=== PATIENT | male | born 1980 | race American Indian/Alaskan Native ===

== ENCOUNTER 2017-02-19 18:46 | Emergency (ER) | payer OTHER ==
[2017-02-19 20:02] VITALS: BP 150/106
[2017-02-19] MEDS ORDERED: MORPHINE IM ONE (20:14)
[2017-02-19] MEDS ORDERED: ZOFRAN IM ONE (20:14)
[2017-02-19] MEDS ORDERED: TORADOL IM ONE (20:15)
--- NOTE | 2017-02-19 20:22 | Emergency Department Report ---
HPI - General Chief Complaint: Fall Time Seen by Provider: 02/19/17 19:31 - HPI HPI: Room 7 The patient is a 36-year-old male presenting with a chief complaint of back and right knee pain. The patient states he was playing softball and while running for a ball began to feel spasms in his back which cause him to fall landing on his right knee. Denies loss of consciousness. Patient gives his back pain a score of 10/10 in his right knee a score of 7/10. The patient states he has had this back pain in the past and has been attributed to muscle spasms Location: Back, right knee Duration: Constant times hours Quality: Pain Severity: 7-10/10 Modifying factors: Movement increases pain Context: [see above] Mode of transportation: [not driving] ED Past Medical Hx - Past Medical History Previous Medical History?: Yes Hx Hypertension: Yes Hx Diabetes: Yes (pre) Additional medical history: Scoliosis. MORBID OBESITY. SLEEP APNEA - Surgical History Past Surgical History?: Yes Additional Surgical History: LEFT HIP. BACK SURGERY-ULLOA RODS FOR SCOLIOSIS - Family History Family history: no significant - Social History Smoking Status: Never Smoker Substance Use Type: Alcohol - Medications Home Medications: Home Medications Medication Instructions Recorded Confirmed Last Taken Type Acetaminophen/Codeine [Tylenol #3] 1 tab PO Q6H PRN #15 tab 06/26/15 Unknown Rx Cephalexin [Keflex] 500 mg PO Q12HR #20 cap 06/26/15 Unknown Rx Sulfamethoxazole/Trimethoprim 1 each PO BID #20 tablet 06/26/15 Unknown Rx [Bactrim DS TAB] Cyclobenzaprine [Flexeril] 10 mg PO TID PRN #14 tablet 02/19/17 Unknown Rx HYDROcodone/APAP 5-325 [[place] 1 - 2 each PO Q6HR PRN #14 tablet 02/19/17 Unknown Rx 5/325] Ibuprofen [Motrin 800 MG tab] 800 mg PO Q8HR PRN #20 tablet 02/19/17 Unknown Rx ED Review of Systems ROS: Stated complaint: BACK SPASMS/KNEE PAIN Other details as noted in HPI Comment: All other systems reviewed and negative Constitutional: denies: chills, fever Eyes: denies: eye pain, eye discharge, vision change ENT: denies: ear pain, throat pain Respiratory: denies: cough, shortness of breath, wheezing Cardiovascular: denies: chest pain, palpitations Endocrine: no symptoms reported Gastrointestinal: denies: abdominal pain, nausea, diarrhea Genitourinary: denies: urgency, dysuria Musculoskeletal: back pain, arthralgia, myalgia Skin: denies: rash, lesions Neurological: denies: headache, weakness, paresthesias Psychiatric: denies: anxiety, depression Hematological/Lymphatic: denies: easy bleeding, easy bruising Physical Exam - Physical Exam Vital Signs: Vital Signs 02/19/17 02/19/17 19:00 20:01 Temperature 98 F 98 F Pulse Rate 100 H 98 H Respiratory 22 18 Rate Blood Pressure 194/134 Blood Pressure 150/106 [Left] O2 Sat by Pulse 94 95 Oximetry Physical Exam: GENERAL: The patient is well-developed well-nourished male lying on stretcher appearing to be in mild discomfort. [] HEENT: Normocephalic. Atraumatic. Extraocular motions are intact. Patient has moist mucous membranes. NECK: Supple. Trachea midline CHEST/LUNGS: Clear to auscultation. There is no respiratory distress noted. HEART/CARDIOVASCULAR: Regular. There is no tachycardia. ABDOMEN: Abdomen is soft, nontender. Patient has normal bowel sounds. There is no abdominal distention. SKIN: There is dirt to the right knee but no active abrasion or laceration seen NEURO: The patient is awake, alert, and oriented. The patient is cooperative. The patient has no focal neurologic deficits. The patient has normal speech MUSCULOSKELETAL: There is tenderness to palpation of the right knee. There is pain with valgus stress of the right lower extremity. There is lumbar tenderness to palpation as well as left paraspinous tenderness to palpation. ED Course Vital Signs 02/19/17 02/19/17 19:00 20:01 Temperature 98 F 98 F Pulse Rate 100 H 98 H Respiratory 22 18 Rate Blood Pressure 194/134 Blood Pressure 150/106 [Left] O2 Sat by Pulse 94 95 Oximetry ED Medical Decision Making - Lab Data Result diagrams: 02/19/17 20:05 02/19/17 20:05 Laboratory Tests 02/19/17 02/19/17 02/19/17 20:05 20:05 20:24 WBC 5.4 RBC 5.05 H Hgb 14.9 Hct 46.6 H MCV 92 MCH 29 MCHC 32 RDW 16.5 H Plt Count 214 Lymph % (Auto) 35.3 H [place] % (Auto) 10.8 H Eos % (Auto) 4.7 H Baso % (Auto) 1.2 Lymph # 1.9 [place] # 0.6 Eos # 0.3 Baso # 0.1 Seg Neutrophils % 48.0 Seg Neutrophils # 2.6 Sodium 143 Potassium 4.0 Chloride 99.0 Carbon Dioxide 34 H Anion Gap 14 BUN 10 Creatinine 1.1 Estimated GFR > 60 BUN/Creatinine Ratio 9.09 Glucose 86 Calcium 9.0 Total Bilirubin 1.60 H AST 26 ALT 21 Alkaline Phosphatase 90 Total Protein 7.3 Albumin 3.5 L Albumin/Globulin Ratio 0.9 Urine Color Yellow Urine Turbidity Clear Urine pH 6.0 Ur Specific [place] 1.020 Urine Protein 100 mg/dl Urine Glucose (UA) Neg Urine Ketones Neg Urine Blood Neg Urine Nitrite Neg Urine Bilirubin Neg Urine Urobilinogen 4.0 Ur Leukocyte Esterase Neg Urine WBC (Auto) 1.0 Urine RBC (Auto) 1.0 U Epithel Cells (Auto) 1.0 Urine Mucus Few - Radiology Data Radiology results: image reviewed (right knee x-ray, lumbar spine x-ray) interpreted by me: Right knee x-ray-no acute fractures Lumbar spine x-ray-no acute fractures - Differential Diagnosis patella fracture, tibial plateau fracture, muscle spasm Critical care attestation.: If time is entered above; I have spent that time in minutes in the direct care of this critically ill patient, excluding procedure time. ED Disposition Clinical Impression: Lumbar strain, Right knee injury, Total bilirubin, elevated Disposition: DC-01 TO HOME OR SELFCARE Is pt being admited?: No Does the pt Need Aspirin: No Condition: Stable Instructions: Muscle Strain (ED), Knee Pain (ED), Arthralgia (ED) Additional Instructions: Return to the emergency department immediately should you develop worsening symptoms, fever, inability to tolerate food or liquid or any other concerns. Prescriptions: Cyclobenzaprine [Flexeril] 10 mg PO TID PRN #14 tablet PRN Reason: Muscle Spasm HYDROcodone/APAP 5-325 [[place] 5/325] 1 - 2 each PO Q6HR PRN #14 tablet PRN Reason: Pain Ibuprofen [Motrin 800 MG tab] 800 mg PO Q8HR PRN #20 tablet PRN Reason: Pain Referrals: PRIMARY CARE, [Primary Care Provider] - 3-5 Days RAJESH BENNETT MD [Staff Physician] - 3-5 Days (Dr. Bennett is an orthopedic surgeon. Please follow up with him for further evaluation) ANUPAM WILKES MD [Staff Physician] - 3-5 Days (Dr. Wilkes is a table attendant. Please follow with him for further evaluation of your elevated total bilirubin (1.6 mg/dL)) Time of Disposition: 22:03
[2017-02-19 20:27] LABS: Basophils % (Auto) 1.2 % (0.0-1.8); Eosinophils % (Auto) 4.7 % (0.0-4.3); Hematocrit 46.6 % (35.5-45.6); Hemoglobin 14.9 gm/dl (11.8-15.2); Mean Corpuscular HGB Conc 32 % (32-34); Mean Corpuscular Hemoglobin 29 pg (28-32); Mean Corpuscular Volume 92 fl (84-94); Platelet Count 214 K/mm3 (140-440); Red Blood Count 5.05 M/mm3 (3.65-5.03); Red Cell Distribution Width 16.5 % (13.2-15.2); White Blood Count 5.4 K/mm3 (4.5-11.0)
[2017-02-19 20:36] LABS: Alanine Aminotransferase 21 units/L (7-56); Albumin 3.5 g/dL (3.9-5); Albumin/Globulin Ratio 0.9 %; Alkaline Phosphatase 90 units/L (35-129); Anion Gap 14 mmol/L; BUN/Creatinine Ratio 9.09; Blood Urea Nitrogen 10 mg/dL (9-20); Carbon Dioxide 34 mmol/L (22-30); Glucose 86 mg/dL (75-100); Sodium 143 mmol/L (137-145); Total Protein 7.3 g/dL (6.3-8.2)
--- NOTE | 2017-02-19 20:37 | XRay Report ---
FINAL REPORT EXAM: XR KNEE 3V RT HISTORY: RT KNEE INJURY COMPARISON: None available. FINDINGS: Three views of right knee obtained. Mild narrowing hypertrophic spurring of the medial joint space compartment. No acute fracture dislocation. No suprapatellar effusion. IMPRESSION: Mild degenerative changes. No acute fracture.
[2017-02-19 20:43] LABS: Bilirubin,Urine NEG (Negative); Blood,Urine NEG (Negative); Ketones,Urine NEG (Negative); Leukocyte Esterase,Urine NEG (Negative); Mucus,Urine FEW /HPF; Nitrite,Urine NEG (Negative)
--- NOTE | 2017-02-19 21:52 | XRay Report ---
FINAL REPORT EXAM: XR SPINE LUMBOSACRAL 2-3V HISTORY: LOWER BACK PAIN AFTER FALL COMPARISON: None available. FINDINGS: Three views of the lumbar spine obtained. Lumbar vertebral body heights and disc heights are preserved. Partial visualization of Erwin rods within the lower thoracic spine and plate screw fixation of the left pelvic ring. Dorsal angulation of the coccyx which may be developmental or may relate to prior trauma. IMPRESSION: Lumbar vertebral body heights and disc heights are preserved. Mild dorsal angulation of the coccyx which may be developmental or could relate to prior trauma.
== END 2017-02-19 23:19 | disposition home or self-care (01) ==
LOC: ED 18:46
DX: S39.012A Strain of muscle, fascia and tendon of lower back, initial encounter (principal); S89.91XA Unspecified injury of right lower leg, initial encounter; R74.8 Abnormal levels of other serum enzymes; W18.30XA Fall on same level, unspecified, initial encounter; Y93.9 Activity, unspecified; Y92.9 Unspecified place or not applicable; Y99.9 Unspecified external cause status
CPT/HCPCS: 29505; 36415; 72100; 73562; 80053; 81001; 85025; 96372; 99284; J1885; J2270; J2405

== ENCOUNTER 2017-08-21 14:25 | Emergency (ER) | payer OTHER ==
[2017-08-21] MEDS ORDERED: MOTRIN PO ONE (15:04)
--- NOTE | 2017-08-21 20:24 | XRay Report ---
FINAL REPORT EXAM: XR ANKLE 3+V LT HISTORY: injury TECHNIQUE: Three views left ankle PRIORS: None. FINDINGS: No fracture is identified. No dislocation seen. Ankle mortise is intact no evidence of joint space widening. No erosive or degenerative changes are identified. No evidence of joint effusion. There is diffuse soft tissue swelling IMPRESSION: Soft tissue swelling Otherwise no acute abnormality
[2017-08-21 21:01] VITALS: BP 155/97
--- NOTE | 2017-08-21 21:04 | Emergency Department Report ---
ED Lower Extremity HPI - General Chief Complaint: Extremity Injury, Lower Stated Complaint: LEFT FOOT PAIN Time Seen by Provider: 08/21/17 20:09 Source: patient Mode of arrival: Ambulatory Limitations: Physical Limitation - History of Present Illness Initial Comments: This is a 37-year-old male nontoxic, well nourished in appearance, no acute signs of distress presents to the ED with c/o of left ankle pain and swelling x1 day. Patient stated he was walking and twisted his ankle and developed pain and swelling. Patient denies any trauma to the region. Denies any numbness, tingling, fever, chills, nausea, vomiting, chest pain or shortness of breath. Denies any other trauma. Patient denies any allergies. Past medical history includes diabetes and hypertension. MD Complaint: ankle injury -: days(s) (1) Injury: Ankle: Left Type of Injury: inversion Place: street/outdoors Severity: mild Severity scale (0 -10): 8 Improves With: nothing Worsens With: nothing Context: other (twist) Associated Symptoms: swelling, able to partially bear weight, ambulatory. denies: snap/pop sensation, numbness, tingling, unable to bear weight - Related Data Previous Rx's Medication Instructions Recorded Last Taken Type Acetaminophen/Codeine [Tylenol #3] 1 tab PO Q6H PRN #15 tab 06/26/15 Unknown Rx Cephalexin [Keflex] 500 mg PO Q12HR #20 cap 06/26/15 Unknown Rx Sulfamethoxazole/Trimethoprim 1 each PO BID #20 tablet 06/26/15 Unknown Rx [Bactrim DS TAB] Cyclobenzaprine [Flexeril] 10 mg PO TID PRN #14 tablet 02/19/17 Unknown Rx HYDROcodone/APAP 5-325 [[place] 1 - 2 each PO Q6HR PRN #14 tablet 02/19/17 Unknown Rx 5/325] Ibuprofen [Motrin 800 MG tab] 800 mg PO Q8HR PRN #20 tablet 02/19/17 Unknown Rx Ibuprofen [Motrin] 600 mg PO Q8H PRN #30 tablet 08/21/17 Unknown Rx Allergies Allergy/AdvReac Type Severity Reaction Status Date / Time No Known Allergies Allergy Verified 06/26/15 21:48 ED Review of Systems ROS: Stated complaint: LEFT FOOT PAIN Other details as noted in HPI Constitutional: denies: chills, fever Eyes: denies: eye pain, eye discharge, vision change ENT: denies: ear pain, throat pain Respiratory: denies: cough, shortness of breath, wheezing Cardiovascular: denies: chest pain, palpitations Endocrine: no symptoms reported Gastrointestinal: denies: abdominal pain, nausea, diarrhea Genitourinary: denies: urgency, dysuria Musculoskeletal: denies: back pain, joint swelling, arthralgia Skin: denies: rash, lesions Neurological: denies: headache, weakness, paresthesias Psychiatric: denies: anxiety, depression Hematological/Lymphatic: denies: easy bleeding, easy bruising ED Past Medical Hx - Past Medical History Hx Hypertension: Yes Hx Diabetes: Yes (pre) Additional medical history: Scoliosis. MORBID OBESITY. SLEEP APNEA - Surgical History Additional Surgical History: LEFT HIP. BACK SURGERY-ULLOA RODS FOR SCOLIOSIS - Social History Smoking Status: Never Smoker Substance Use Type: Alcohol - Medications Home Medications: Home Medications Medication Instructions Recorded Confirmed Last Taken Type Acetaminophen/Codeine [Tylenol #3] 1 tab PO Q6H PRN #15 tab 06/26/15 Unknown Rx Cephalexin [Keflex] 500 mg PO Q12HR #20 cap 06/26/15 Unknown Rx Sulfamethoxazole/Trimethoprim 1 each PO BID #20 tablet 06/26/15 Unknown Rx [Bactrim DS TAB] Cyclobenzaprine [Flexeril] 10 mg PO TID PRN #14 tablet 02/19/17 Unknown Rx HYDROcodone/APAP 5-325 [[place] 1 - 2 each PO Q6HR PRN #14 tablet 02/19/17 Unknown Rx 5/325] Ibuprofen [Motrin 800 MG tab] 800 mg PO Q8HR PRN #20 tablet 02/19/17 Unknown Rx Ibuprofen [Motrin] 600 mg PO Q8H PRN #30 tablet 08/21/17 Unknown Rx ED Physical Exam - General Limitations: Physical Limitation General appearance: alert, in no apparent distress - Head Head exam: Present: atraumatic, normocephalic - Eye Eye exam: Present: normal appearance Pupils: Present: normal accommodation - ENT ENT exam: Present: mucous membranes moist - Neck Neck exam: Present: normal inspection - Respiratory Respiratory exam: Present: normal lung sounds bilaterally. Absent: respiratory distress - Cardiovascular Cardiovascular Exam: Present: regular rate, normal rhythm. Absent: systolic murmur, diastolic murmur, rubs, gallop - GI/Abdominal GI/Abdominal exam: Present: soft, normal bowel sounds - Rectal Rectal exam: Present: deferred - Extremities Exam Extremities exam: Present: normal inspection, full ROM, tenderness, normal capillary refill. Absent: pedal edema, joint swelling, calf tenderness - Expanded Lower Extremity Exam Left Hip exam: Present: normal inspection, full ROM Upper Leg exam: Present: normal inspection, full ROM Knee exam: Present: normal inspection, full ROM Lower Leg exam: Present: normal inspection, full ROM Ankle exam: Present: normal inspection, full ROM, tenderness, swelling. Absent : abrasion, laceration, ecchymosis, deformity, crepidus, dislocation, erythema, anterior draw sign Foot/Toe exam: Present: normal inspection, full ROM Neuro vascular tendon exam: Present: no vascular compromise. Absent: pulse deficit, abnormal cap refill, motor deficit, sensory deficit, tendon deficit, extremity cold to touch, pallor, abnormal 2-point discrimination, decreased fine /light touch, foot drop, peroneal nerve deficit, significant pain with passive ROM of distal joint Gait: Positive: observed and limited by pain 1 - pain - Back Exam Back exam: Present: normal inspection - Neurological Exam Neurological exam: Present: alert, oriented X3 - Psychiatric Psychiatric exam: Present: normal affect, normal mood - Skin Skin exam: Present: warm, dry, intact, normal color. Absent: rash ED Course Vital Signs 08/21/17 14:57 Temperature 98.5 F Pulse Rate 101 H Blood Pressure 157/107 O2 Sat by Pulse 96 Oximetry - Reevaluation(s) Reevaluation #1: 08/21/17 21:05 Patient is speaking in full sentences with no signs of distress noted. ED Lower Extremity MDM - Medical Decision Making This is a 37-year-old male that presents with left ankle sprain. Patient is stable and was examined by me. Xray has been obtained and dictated by radiologist with normal exam and no fractures or dislocation. Patient is notified of xray results with no questions noted. Patient received left ankle stirrup in the Ed and crutches. Crutches was educated by RN. Patient was instructed to RICE therapy. Patient was instructed to Follow-up with a orthopedic doctor in 3-5 days or if symptoms worsen and continue return to emergency room as soon as possible. At time time of discharge, the patient does not seem toxic or ill in appearance. No acute signs of distress noted. Patient agrees to discharge treatment plan of care. No further questions noted by the patient. Critical care attestation.: If time is entered above; I have spent that time in minutes in the direct care of this critically ill patient, excluding procedure time. ED Disposition Clinical Impression: Left ankle sprain Qualifiers: Encounter type: initial encounter Involved ligament of ankle: unspecified ligament Qualified Code(s): S93.402A - Sprain of unspecified ligament of left ankle, initial encounter Disposition: TO HOME OR SELFCARE Is pt being admited?: No Does the pt Need Aspirin: No Condition: Stable Instructions: Ankle Sprain (ED), Ankle Stirrup Splint (ED), Crutch Instructions (ED), RICE Therapy (ED), Ibuprofen (By mouth) Additional Instructions: Follow-up with a orthopedic doctor in 3-5 days or if symptoms worsen and continue return to emergency room as soon as possible. Rest, elevate, and ice extremity Prescriptions: Ibuprofen [Motrin] 600 mg PO Q8H PRN #30 tablet PRN Reason: Pain Referrals: JACKIE CLARK MD [Primary Care Provider] - 3-5 Days LANA ALEJANDRO MD [Staff Physician] - 3-5 Days [facility] [Outside] - 3-5 Days [facility] [Outside] - 3-5 Days Forms: Work/School Release Form(ED)
== END 2017-08-21 21:30 | disposition home or self-care (01) ==
LOC: ED 14:25
DX: S93.402A Sprain of unspecified ligament of left ankle, initial encounter (principal); I10 Essential (primary) hypertension; X50.9XXA Other and unspecified overexertion or strenuous movements or postures, initial encounter; Y93.89 Activity, other specified; Y99.8 Other external cause status; Y92.410 Unspecified street and highway as the place of occurrence of the external cause

== ENCOUNTER 2018-05-08 14:24 | Emergency (ER) | payer OTHER ==
[2018-05-08] MEDS ORDERED: NORCO 10/325 ONE (17:22)
[2018-05-08] MEDS ORDERED: NORCO 10/325 PO ONE (17:32)
--- NOTE | 2018-05-08 19:18 | XRay Report ---
FINAL REPORT PROCEDURE: XR HIP 2-3V LT TECHNIQUE: LEFT hip radiographs, 2 views each, including AP view of the pelvis. HISTORY: Pain and decreased range of motion after fall. COMPARISON: No prior studies are available for comparison. FINDINGS: Fracture (s) and/or Dislocation(s): Complex left acetabular reconstruction. Subtle lucency about left femoral head/neck Joint space(s): Moderate hypertrophic change and well corticated densities about the left hip joint. Findings to a lesser degree about the right hip joint. Increase sclerosis seen in both femoral heads. Soft tissues: Normal. Bone mineralization: Normal. Foreign bodies: None. IMPRESSION: Extensive postsurgical changes about the left hip with degenerative changes of the bilateral hips, and possible superimposed process such as AVN or infectious/inflammatory change. Findings more involve the left hip, well corticated densities likely chronic/degenerative. However, there is subtle lucency about left femoral head/neck, cannot exclude minimally displaced fracture. Consider CT scan for further characterization if there is continued clinical concern.
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
[2018-05-08] MEDS ORDERED: MORPHINE IM ONE (22:16)
--- NOTE | 2018-05-08 22:39 | Cat Scan Report ---
FINAL REPORT PROCEDURE: CT PELVIS WO CON TECHNIQUE: Computerized axial tomography of the pelvis was performed without contrast material. HISTORY: left hip pain, history of fracture and repair COMPARISON: No prior studies are available for comparison. TECHNICAL QUALITY: Satisfactory. FINDINGS: Hardware traverses the left acetabulum. The left hip joint is intact. There is dystrophic calcification about the left hip joint. Osteoarthritic changes are also present, with joint space narrowing, osteophyte formation, and subarticular cyst formation in the acetabulum and femoral head. No acute fracture of the left femur is seen. No acute fracture of the bony pelvis is seen. Sacroiliac joints are intact. IMPRESSION: Chronic changes as above. No acute fracture is seen
[2018-05-09 00:54] VITALS: BP 138/76
== END 2018-05-09 00:41 | disposition home or self-care (01) ==
LOC: ED 14:24
DX: M25.552 Pain in left hip (principal); I10 Essential (primary) hypertension; E11.9 Type 2 diabetes mellitus without complications; G47.30 Sleep apnea, unspecified
CPT/HCPCS: 72192; 73502; 96372; 99284; J2270

== ENCOUNTER 2018-12-18 16:11 | Emergency (ER) | payer OTHER ==
[2018-12-18 16:21] VITALS: BP 141/74
[2018-12-18 18:28] LABS: Hematocrit 43.6 % (35.5-45.6); Hemoglobin 14.7 gm/dl (11.8-15.2); Mean Corpuscular HGB Conc 34 % (32-34); Mean Corpuscular Volume 89 fl (84-94); Platelet Count 271 K/mm3 (140-440); Red Blood Count 4.91 M/mm3 (3.65-5.03)
[2018-12-18 18:42] LABS: Alanine Aminotransferase 15 units/L (7-56); Albumin 4.1 g/dL (3.9-5); BUN/Creatinine Ratio 14; Blood Urea Nitrogen 10 mg/dL (9-20); Calcium 9.3 mg/dL (8.4-10.2); Hemolysis Index 11
[2018-12-18] MEDS ORDERED: ZOFRAN IV ONE (20:43)
[2018-12-18] MEDS ORDERED: TORADOL IV ONE (20:43)
[2018-12-18] MEDS ORDERED: D50W (25GM) Syringe IV ONE (20:43)
[2018-12-18] MEDS ORDERED: NACL 0.9% 1000 ML 1,000 ML IV ONE (20:43)
--- NOTE | 2018-12-18 20:50 | Emergency Department Report ---
ED Abdominal Pain HPI - General Chief Complaint: Abdominal Pain Stated Complaint: FALL/STOMACH PAIN Time Seen by Provider: 12/18/18 20:41 Source: patient Mode of arrival: Wheelchair Limitations: No Limitations - History of Present Illness Initial Comments: Patient is a 38-year-old -[place] male with a history of diabetes 2, Hypertension, morbid obesity, and GERD, who presents with abdominal pain nausea vomiting pain is right upper quadrant radiating to right lower quadrant pain is exacerbated by movement and by mouth intake last po intake yesterday as well as nausea vomiting last episode this afternoon last Accu-Chek was 91mg/dl this af ternoon patient denies history of gallstones or renal stones however does have GERD with frequent exacerbation. MD Complaint: abdominal pain Onset/Timin -: days(s) Location: diffuse Radiation: RUQ Migration to: RUQ, RLQ Severity: moderate Severity scale (0 -10): 10 Quality: aching, sharp Consistency: constant Improves With: nothing Worsens With: eating Associated Symptoms: nausea, vomiting - Related Data Previous Rx's Medication Instructions Recorded Last Taken Type Acetaminophen/Codeine [Tylenol #3] 1 tab PO Q6H PRN #15 tab 06/26/15 Unknown Rx Sulfamethoxazole/Trimethoprim 1 each PO BID #20 tablet 06/26/15 Unknown Rx [Bactrim DS TAB] cephALEXin [Keflex] 500 mg PO Q12HR #20 cap 06/26/15 Unknown Rx Cyclobenzaprine [Flexeril] 10 mg PO TID PRN #14 tablet 02/19/17 Unknown Rx Ibuprofen [Motrin 800 MG tab] 800 mg PO Q8HR PRN #20 tablet 02/19/17 Unknown Rx Ibuprofen [Motrin] 600 mg PO Q8H PRN #30 tablet 08/21/17 Unknown Rx HYDROcodone/APAP 5-325 [[place] 1 each PO Q6HR PRN #12 tablet 05/08/18 Unknown Rx 5-325 mg TAB] Omeprazole 40 mg PO DAILY #30 capsule. 12/18/18 Unknown Rx traMADol [Ultram 50 MG tab] 50 mg PO Q6HR PRN #12 tablet 12/18/18 Unknown Rx Allergies Allergy/AdvReac Type Severity Reaction Status Date / Time No Known Allergies Allergy Verified 05/08/18 14:51 ED Review of Systems ROS: Stated complaint: FALL/STOMACH PAIN Other details as noted in HPI Constitutional: denies: chills, fever Eyes: denies: eye pain, eye discharge, vision change ENT: denies: ear pain, throat pain Respiratory: denies: cough, shortness of breath, wheezing Cardiovascular: denies: chest pain, palpitations Endocrine: no symptoms reported Gastrointestinal: abdominal pain, nausea, vomiting Genitourinary: denies: urgency, dysuria, frequency, hematuria Musculoskeletal: denies: back pain, joint swelling, arthralgia Skin: denies: rash, lesions Neurological: denies: headache, weakness, paresthesias Psychiatric: denies: anxiety, depression Hematological/Lymphatic: denies: easy bleeding, easy bruising ED Past Medical Hx - Past Medical History Previous Medical History?: Yes Hx Hypertension: Yes Hx Diabetes: Yes (pre) Additional medical history: Scoliosis. MORBID OBESITY. SLEEP APNEA - Surgical History Past Surgical History?: Yes Additional Surgical History: LEFT HIP. BACK SURGERY-ULLOA RODS FOR SCOLIOSIS - Social History Smoking Status: Never Smoker Substance Use Type: Alcohol - Medications Home Medications: Home Medications Medication Instructions Recorded Confirmed Last Taken Type Acetaminophen/Codeine [Tylenol #3] 1 tab PO Q6H PRN #15 tab 06/26/15 Unknown Rx Sulfamethoxazole/Trimethoprim 1 each PO BID #20 tablet 06/26/15 Unknown Rx [Bactrim DS TAB] cephALEXin [Keflex] 500 mg PO Q12HR #20 cap 06/26/15 Unknown Rx Cyclobenzaprine [Flexeril] 10 mg PO TID PRN #14 tablet 02/19/17 Unknown Rx Ibuprofen [Motrin 800 MG tab] 800 mg PO Q8HR PRN #20 tablet 02/19/17 Unknown Rx Ibuprofen [Motrin] 600 mg PO Q8H PRN #30 tablet 08/21/17 Unknown Rx HYDROcodone/APAP 5-325 [[place] 1 each PO Q6HR PRN #12 tablet 05/08/18 Unknown Rx 5-325 mg TAB] Omeprazole 40 mg PO DAILY #30 capsule. 12/18/18 Unknown Rx traMADol [Ultram 50 MG tab] 50 mg PO Q6HR PRN #12 tablet 12/18/18 Unknown Rx ED Physical Exam - General Limitations: No Limitations General appearance: alert, in no apparent distress - Head Head exam: Present: atraumatic, normocephalic - Eye Eye exam: Present: normal appearance - ENT ENT exam: Present: mucous membranes moist - Neck Neck exam: Present: normal inspection, full ROM. Absent: lymphadenopathy, thyromegaly - Respiratory Respiratory exam: Present: normal lung sounds bilaterally. Absent: respiratory distress, wheezes, stridor, chest wall tenderness - Cardiovascular Cardiovascular Exam: Present: regular rate, normal rhythm, normal heart sounds. Absent: systolic murmur, diastolic murmur, rubs, gallop - GI/Abdominal GI/Abdominal exam: Present: tenderness (RUQ RLQ LLQ ), normal bowel sounds, other (obese ). Absent: guarding, rebound, rigid, bruit, hernia - Rectal Rectal exam: Present: deferred - Extremities Exam Extremities exam: Present: normal inspection, full ROM, normal capillary refill. Absent: tenderness, pedal edema, joint swelling, calf tenderness - Back Exam Back exam: Present: normal inspection, full ROM. Absent: tenderness, CVA tenderness (R), CVA tenderness (L), muscle spasm, rash noted - Neurological Exam Neurological exam: Present: alert, oriented X3, CN II-XII intact, normal gait - Psychiatric Psychiatric exam: Present: normal affect, normal mood - Skin Skin exam: Present: warm, dry, intact, normal color. Absent: rash ED Course Vital Signs 12/18/18 16:19 Temperature 97.9 F Pulse Rate 84 Respiratory 20 Rate Blood Pressure 141/74 O2 Sat by Pulse 96 Oximetry ED Medical Decision Making - Lab Data Result diagrams: 12/18/18 17:44 12/18/18 17:44 Labs 12/18/18 12/18/18 12/18/18 17:44 17:44 21:16 WBC 9.2 RBC 4.91 Hgb 14.7 Hct 43.6 MCV 89 MCH 30 MCHC 34 RDW 14.0 Plt Count 271 Sodium 141 Potassium 4.2 Chloride 98.7 Carbon Dioxide 32 H Anion Gap 15 BUN 10 Creatinine 0.7 L Estimated GFR > 60 BUN/Creatinine Ratio 14 Glucose 54 L Calcium 9.3 Total Bilirubin 0.70 AST 19 ALT 15 Alkaline Phosphatase 64 Total Protein 7.9 Albumin 4.1 Albumin/Globulin Ratio 1.1 Lipase 28 Urine Color Yellow Urine Turbidity Clear Urine pH 6.0 Ur Specific [place] 1.023 Urine Protein <15 mg/dl Urine Glucose (UA) Neg Urine Ketones Neg Urine Blood Neg Urine Nitrite Neg Urine Bilirubin Neg Urine Urobilinogen 4.0 Ur Leukocyte Esterase Neg Urine WBC (Auto) < 1.0 Urine RBC (Auto) 1.0 U Epithel Cells (Auto) < 1.0 Hyaline Casts 1 Urine Mucus Few - Radiology Data Radiology results: report reviewed, image reviewed Referring Physician: FLOR JASON Patient Name: SAJI CANNON Date of : 1980 Sex: Male Report Date: 2018-12-18 Report Status: Finalized Findings [facility] [address] [id number] Cat Scan Report Signed Patient: SAJI CANNON MR#: [id number] : 1980 Acct:[id number] Age/Sex: 38 / M ADM Date: 12/18/18 Loc: ED Attending Dr: Ordering Physician: FLOR JASON NP Date of Service: 12/18/18 Procedure(s): CT abdomen pelvis w con Accession Number(s): [id number] cc: FLOR JASON NP PROCEDURE: CT ABDOMEN PELVIS W CON TECHNIQUE: Axial images obtained abdomen and pelvis following intravenous administration of contrast. Sagittal and coronal reformatted images obtained. HISTORY: abd pain COMPARISONS: Pelvic CT May 08, 2018 FINDINGS: Study is limited by patient body habitus. Entire abdomen does not fifth [id number]. Large amount of streak artifact. Lung bases demonstrate no consolidation. No effusion. Liver, spleen and pancreas demonstrate no acute abnormality. The liver is incompletely imaged due to [id number] limits. Gallbladder is contracted. No radiopaque foreign body Adrenal glands unremarkable. Kidneys demonstrate normal enhancement. Normal contour. Symmetric excretion of contrast. Bladder unremarkable. Aorta normal caliber. No retroperitoneal adenopathy No bowel obstruction. No diverticulosis. No diverticulitis. Normal appendix. Omentum and mesentery unremarkable. Fat-containing inguinal hernia. Status post thoracolumbar fusion. Lumbar vertebral body height and alignment maintained. Status post ORIF posterior column left acetabulum. Severe osteoarthritis left hip. Moderate osteoarthritis right hip. IMPRESSION: Study is limited by patient body habitus and limited visualization secondary abdomen not contained within [id number] No free air. No free fluid. No bowel obstruction No hydronephrosis No acute inflammatory change Status post ORIF posterior column left acetabulum. Severe left hip arthritis. This document is electronically signed by Juvenal Washington MD., December 18 2018 11:00:40 PM ET Transcribed By: [facility] Dictated By: JUVENAL WASHINGTON MD Electronically Authenticated By: JUVENAL WASHINGTON MD Signed Date/Time: 12/18/182301 DD/ 41 TD/TT: 12/18/182242 - Medical Decision Making CT abdomen results above no acute concernsr right inguinal heria fat containing, pt symptoms improved, tolerating po intake without n/v, accucheck: plan follow up pcp in 2 days take all medications as prescribed, will dc to home with rx for tramadol prn , refill omeprazole, will return to ed if symptoms worsen, pt verbalized agreement and understanding of discharge plan. Critical care attestation.: If time is entered above; I have spent that time in minutes in the direct care of this critically ill patient, excluding procedure time. ED Disposition Clinical Impression: Hypoglycemia Abdominal pain Qualifiers: Abdominal location: generalized Qualified Code(s): R10.84 - Generalized abdominal pain Disposition: DC-01 TO HOME OR SELFCARE Is pt being admited?: No Does the pt Need Aspirin: No Condition: Stable Instructions: Abdominal Pain (ED), Diabetic Hypoglycemia (ED) Prescriptions: Omeprazole 40 mg PO DAILY #30 capsule. traMADol [Ultram 50 MG tab] 50 mg PO Q6HR PRN #12 tablet PRN Reason: Pain Referrals: MARISABEL WHITE MD [Referring] - 3-5 Days Forms: Work/School Release Form(ED)
[2018-12-18 21:53] LABS: Bilirubin,Urine NEG (Negative); Blood,Urine NEG (Negative); Color,Urine Yellow (Yellow); Hyaline Casts,Urine 1 /LPF; Mucus,Urine FEW /HPF; Protein,Urine <15 mg/dL mg/dL (Negative); WBC,Urine < 1.0 /HPF (0.0-6.0)
--- NOTE | 2018-12-18 23:02 | Cat Scan Report ---
PROCEDURE: CT ABDOMEN PELVIS W CON TECHNIQUE: Axial images obtained abdomen and pelvis following intravenous administration of contrast . Sagittal and coronal reformatted images obtained. HISTORY: abd pain COMPARISONS: Pelvic CT May 08, 2018 FINDINGS: Study is limited by patient body habitus. Entire abdomen does not fifth [id number]. Large amount o f streak artifact. Lung bases demonstrate no consolidation. No effusion. Liver, spleen and pancreas demonstrate no acute abnormality. The liver is incompletely imaged due to [id number] limits. Gallbladder is contracted. No radiopaque foreign body Adrenal glands unremarkable. Kidneys demonstrate normal enhancement. Normal contour. Symmetric excret ion of contrast. Bladder unremarkable. Aorta normal caliber. No retroperitoneal adenopathy No bowel obstruction. No diverticulosis. No diverticulitis. Normal appendix. Omentum and mesentery un remarkable. Fat-containing inguinal hernia. Status post thoracolumbar fusion. Lumbar vertebral body height and alignment maintained. Status post ORIF posterior column left acetabulum. Severe osteoarthritis left hip. Moderate osteoarth ritis right hip. IMPRESSION: Study is limited by patient body habitus and limited visualization secondary abdomen not contained wi thin [id number] No free air. No free fluid. No bowel obstruction No hydronephrosis No acute inflammatory change Status post ORIF posterior column left acetabulum. Severe left hip arthritis. This document is electronically signed by Juvenal Arzate MD., December 18 2018 11:00:40 PM ET
[2018-12-19] MEDS ORDERED: ZOFRAN ONE (00:23)
[2018-12-19] MEDS ORDERED: TORADOL ONE (00:23)
[2018-12-19] MEDS ORDERED: TORADOL IV ONE (00:24)
[2018-12-19] MEDS ORDERED: ZOFRAN IV ONE (00:24)
== END 2018-12-19 01:00 | disposition home or self-care (01) ==
LOC: ED 16:11
DX: E13.649 Other specified diabetes mellitus with hypoglycemia without coma (principal); R10.84 Generalized abdominal pain; I10 Essential (primary) hypertension; E66.01 Morbid (severe) obesity due to excess calories; Z68.44 Body mass index [BMI] 60.0-69.9, adult; Z79.899 Other long term (current) drug therapy
CPT/HCPCS: 36415; 74177; 80053; 81001; 82962; 83690; 85027; 96361; 96374; 96375; 96376; 99284; J1885; J2405; J7030; Q9967